=== PATIENT | male | born 1950 | race Caucasian/White ===

== ENCOUNTER 2018-09-12 16:58 | Emergency (ER) | payer OTHER ==
[2018-09-12 18:14] LABS: Urine Glucose NEGATIVE (NEG)
[2018-09-12 18:15] LABS: Urine Blood NEGATIVE (NEG); Urine Protein NEGATIVE (NEG)
[2018-09-12 18:39] LABS: Urine Bacteria <20 /HPF (NONE SEEN); Urine RBC NONE SEEN /HPF (NONE SEEN)
[2018-09-12 18:40] LABS: Urine Culture Reflex Order NOT NEEDED; Urine Mucus 1+ /HPF (NONE SEEN)
[2018-09-12] MEDS ORDERED: ONDANSETRON 4 MG/2 ML VIAL ONE (19:01)
[2018-09-12] MEDS ORDERED: MORPHINE 4 MG/ML SYR ONE (19:01)
[2018-09-12] MEDS ORDERED: NA CHLORIDE 0.9% 1,000 ML ONE (19:02)
[2018-09-12 19:12] LABS: Albumin 4.1 g/dL (3.4-5.0); Bilirubin Direct 0.2 mg/dL (0-0.2); Bilirubin Total 0.8 mg/dL (0.2-1.0); Potassium 3.8 mmol/L (3.5-5.1); Protein, Total 7.5 g/dL (6.4-8.2)
[2018-09-12 19:15] LABS: Absolute Lymphocytes (CBC) 0.7 K/uL (0.7-4.9); Absolute Neutrophil 11.6 K/uL (1.8-8.0); Basophils % 0.3 % (0-1.3); Eosinophils % 0.3 % (0-4.4); Hematocrit 53.4 % (39.6-49.0); Lymphocytes % 5.2 % (15.3-44.8); MPV 9.4 fL (7.6-11.3); Monocytes % 7.3 % (3.3-12.3); RBC Red Blood Cell Count 6.23 M/uL (4.33-5.43)
--- NOTE | 2018-09-12 19:38 | RAD REPORT ---
EXAM DESCRIPTION: CT - Abdomen Pelvis W Contrast - 09/12/2018 7:24 pm CLINICAL HISTORY: Abdominal pain COMPARISON: none. TECHNIQUE: Computed axial tomography of the abdomen pelvis was obtained. 100 cc Isovue-300 was admin istered intravenously. Oral contrast was not requested which limits evaluation of bowel. All CT scans are performed using dose optimization technique as appropriate and may include automated exposure control or mA/KV adjustment according to patient size. FINDINGS: The liver, spleen, pancreas, and adrenals appear unremarkable. Tiny nonobstructing bilateral renal calculi are present There is no evidence of diverticulitis. The appendix is normal. The gallbladder is mildly distended. At least 2 stones are present. Gallbladder wall does not appear thickened Spondylosis results in spinal stenosis. The prostate gland is mildly enlarged. Right inguinal hernia contains fat IMPRESSION: Cholelithiasis with gallbladder distention.
[2018-09-12 19:46] LABS: Blood Morphology Comment NOT SEEN (NOT SEEN); Platelet Estimate ADEQ; Platelets, Giant NOTED; Urine White Blood Cell Casts OK
[2018-09-12] MEDS ORDERED: KETOROLAC 30 MG/ML INJ ONE (20:59)
--- NOTE | 2018-09-12 23:28 | ER ---
Nurse's Notes [facility] Name: Ruby Sanchez Age: 68 yrs Sex: Male : 1950 Arrival Date: 09/12/2018 Time: 17:02 Bed 15 Private MD: Diagnosis: Cholelithiasis Presentation: 09/12 17:09 Presenting complaint: Patient states: i am having extreme abdominal pain started about tw2 noon, same time yesterday, i took some charcoal pills it went away then it came back, N, denies vomiting and diarrhea. Transition of care: patient was not received from another setting of care. Onset of symptoms was September 12, 2018. Risk Assessment: Do you want to hurt yourself or someone else? Patient reports no desire to harm self or others. Initial Sepsis Screen: Does the patient meet any 2 criteria? No. Patient's initial sepsis screen is negative. Does the patient have a suspected source of infection? No. Patient's initial sepsis screen is negative. Care prior to arrival: None. 17:09 Method Of Arrival: Ambulatory tw2 17:09 Acuity: ADRIAN 3 tw2 Triage Assessment: 17:12 General: Appears uncomfortable, Behavior is calm, cooperative, appropriate for age. tw2 Pain: Complains of pain in abdomen. GI: Abdomen is round. Historical: - Allergies: 17:12 No Known Allergies; tw2 - Home Meds: 17:12 Metoprolol Tartrate Oral [Active]; Benicar oral oral [Active]; Wellbutrin Oral [Active];tw2 - PMHx: 17:12 Hypertension; tw2 - Immunization history:: Adult Immunizations. - Social history:: Smoking status: Patient/guardian denies using tobacco. - Ebola Screening: : Patient denies travel to an Ebola-affected area in the 21 days before illness onset. Screenin:15 Abuse screen: Denies threats or abuse. Nutritional screening: No deficits noted. rb1 Tuberculosis screening: No symptoms or risk factors identified. Fall Risk None identified. Assessment: 17:15 General: Appears uncomfortable, Behavior is calm, cooperative, Denies fever. Pain: rb1 Complains of pain in abdomen Pain currently is 8 out of 10 on a pain scale. Quality of pain is described as sharp, Pain began 1 day ago. Is intermittent. Neuro: Level of Consciousness is awake, alert, obeys commands, Oriented to person, place, time, situation. Cardiovascular: Capillary refill < 3 seconds is brisk in bilateral fingers. Respiratory: Airway is patent Respiratory effort is even, unlabored, Respiratory pattern is regular, symmetrical. GI: Bowel sounds present X 4 quads. Abd is soft X 4 quads Reports nausea. : No signs and/or symptoms were reported regarding the genitourinary system. Derm: Skin is pink, warm \T\ dry. 18:15 Reassessment: Patient appears in no apparent distress at this time. No changes from rb1 previously documented assessment. Pt. is pacing around the room. Friend at bedside. 19:05 General: Appears in no apparent distress. uncomfortable, Behavior is calm, cooperative, rr5 appropriate for age. Pain: Complains of pain in right upper quadrant and left upper quadrant Pain does not radiate. Pain currently is 4 out of 10 on a pain scale. Quality of pain is described as sharp, Pain began 1 day ago. Is intermittent. 19:05 Neuro: Level of Consciousness is awake, alert, obeys commands, Oriented to person, rr5 place, time, situation. Cardiovascular: Capillary refill < 3 seconds Patient's skin is warm and dry. Respiratory: Airway is patent Respiratory effort is even, unlabored, Respiratory pattern is regular, symmetrical. GI: Abdomen is round. : No signs and/or symptoms were reported regarding the genitourinary system. EENT: No signs and/or symptoms were reported regarding the EENT system. Derm: Skin temperature is warm. Musculoskeletal: Capillary refill < 3 seconds, Range of motion: intact in all extremities. 20:05 Reassessment: Patient appears in no apparent distress at this time. Patient is alert, rr5 oriented x 3, equal unlabored respirations, skin warm/dry/pink. reassess by ED provider with order made and carried out. Patient states feeling better. Patient states symptoms have improved. 20:50 Reassessment: Patient appears in no apparent distress at this time. abdominal pain rr5 recur. Ed provider with order made and carried out. pain score of 7/10, facial grimace noted. 21:30 Reassessment: Patient appears in no apparent distress at this time. Patient is alert, rr5 oriented x 3, equal unlabored respirations, skin warm/dry/pink. Patient states symptoms have improved. 22:27 Reassessment: Patient appears in no apparent distress at this time. Patient is alert, rr5 oriented x 3, equal unlabored respirations, skin warm/dry/pink. Patient states feeling better. Patient states symptoms have improved. 23:24 Reassessment: Patient appears in no apparent distress at this time. Patient is alert, rr5 oriented x 3, equal unlabored respirations, skin warm/dry/pink. pain totally 0 now as verbalized by the patient. Patient denies pain at this time. Patient states feeling better. Patient states symptoms have improved. 23:45 Reassessment: Patient appears in no apparent distress at this time. Patient is alert, rr5 oriented x 3, equal unlabored respirations, skin warm/dry/pink. discharge instruction given and explained without complaints made. Patient denies pain at this time. Patient states feeling better. Patient states symptoms have improved. Vital Signs: 17:12 BP 161 / 68; Pulse 64; Resp 18; Temp 98.3(O); Pulse Ox 99% on R/A; Weight 113.4 kg (R); tw2 Height 5 ft. 7 in. (170.18 cm); Pain 8/10; 19:05 BP 169 / 70; Pulse 65; Resp 17; Temp 98.4(O); Pulse Ox 99% ; Pain 4/10; rr5 20:00 BP 171 / 76; Pulse 66; Resp 19; Pulse Ox 98% ; rr5 21:00 BP 175 / 82; Pulse 82; Resp 20; Pulse Ox 97% ; rr5 21:48 BP 156 / 77; Pulse 89; Resp 18; Pulse Ox 95% on R/A; mt 22:27 BP 126 / 69; Pulse 87; Resp 18; Pulse Ox 96% ; rr5 23:25 BP 139 / 58; Pulse 75; Resp 16; Pulse Ox 99% ; rr5 17:12 Body Mass Index 39.16 (113.40 kg, 170.18 cm) tw2 ED Course: 17:02 Patient arrived in ED. as 17:10 Triage completed. tw2 17:10 Arm band placed on. tw2 17:15 Mauricio Rios NP is PHCP. pm1 17:15 Dale Chand MD is Attending Physician. pm1 17:15 Patient has correct armband on for positive identification. Bed in low position. Call rb1 light in reach. Side rails up X 1. Pulse ox on. NIBP on. Warm blanket given. 17:32 Radiology exam delayed due to lab results not completed at this time. (BUN/Creatinine). vm2 17:59 Radiology exam delayed due to lab results not completed at this time. (BUN/Creatinine). nj 18:16 Vesta Corrigan, RN is Primary Nurse. rb1 18:32 Radiology exam delayed due to lab results not completed at this time. (BUN/Creatinine). vm2 18:35 Missed attempt(s): 22 gauge in left antecubital area. rb1 18:46 Radiology exam delayed due to lab results not completed at this time. (BUN/Creatinine). 2 19:00 Report given to ALVINA Manjarrez. rb1 19:02 Radiology exam delayed due to lab results not completed at this time. (BUN/Creatinine). 2 19:06 Missed attempt(s): 20 gauge in right forearm. antecubital area. 5 19:07 Urine collected: clean catch specimen, clear. 5 19:08 Basic Metabolic Panel Sent. 5 19:08 CBC with Diff Sent. 5 19:08 Creatinine for Radiology Sent. 5 19:08 Hepatic Function Sent. 5 19:08 Lipase Sent. 5 19:[address] via wheelchair. 2 19:23 CT completed. Patient tolerated procedure well. Patient moved back from CT. nj 19:24 CT Abd/Pelvis - W/Contrast: IV contrast only In Process Unspecified. EDMS 20:50 IV discontinued, intact, bleeding controlled, No redness/swelling at site. Pressure rr5 dressing applied, infiltrated. 21:04 US Abdomen Limited In Process Unspecified. EDMS 23:45 No provider procedures requiring assistance completed. rr5 Administered Medications: 18:55 Drug: NS 0.9% 1000 ml Route: IV; Rate: 1000 ml; Site: right antecubital; rb1 20:50 Follow up: Response: No adverse reaction; IV Status: Order to discontinue infusion; IV rr5 Intake: 500ml 18:55 Drug: morphine 4 mg Route: IVP; Site: right antecubital; rb1 20:16 Follow up: Response: No adverse reaction rr5 18:55 Drug: Zofran 4 mg Route: IVP; Site: right antecubital; rb1 20:16 Follow up: Response: No adverse reaction rr5 20:55 CANCELLED (Other Intervention Used): TORadol 15 mg IVP once rr5 20:55 Drug: TORadol 30 mg Route: IM; Site: left gluteus; rr5 23:40 Follow up: Response: No adverse reaction rr5 Intake: 20:50 IV: 500ml; Total: 500ml. rr5 Outcome: 23:27 Discharge ordered by MD. pm1 23:45 Discharged to home ambulatory. rr5 23:45 Condition: stable 23:45 Discharge instructions given to patient, Instructed on discharge instructions, follow up and referral plans. medication usage, Demonstrated understanding of instructions, follow-up care, medications, Prescriptions given X 3. 23:46 Patient left the ED. rr5 Signatures: Dispatcher [employer] Kely Alan Rebecca, RN RN rb1 Mauricio Rios NP CHEMICAL EQUIPMENT CONTROLLER pm1 Halima Bryson RN RN tw2 Codey Og Maria Vickie Jeffery [facility] Claire Salas mt, Raymond, RN RN rr5
--- NOTE | 2018-09-12 23:28 | EDPHYS ---
Physician Documentation [facility] Name: Ruby Sanchez Age: 68 yrs Sex: Male : 1950 Arrival Date: 09/12/2018 Time: 17:02 Bed 15 Private MD: ED Physician Dale Chand HPI: 09/12 19:12 This 68 yrs old Male presents to ER via Ambulatory with complaints of pm1 Abdominal Pain. 19:12 The patient presents with abdominal pain that is diffuse. Onset: The symptoms/episode pm1 began/occurred last night. The symptoms do not radiate. Associated signs and symptoms: Pertinent positives: nausea, Low back pain, Pertinent negatives: chest pain, diarrhea, dysuria, fever, shortness of breath, vomiting. The symptoms are described as sharp. Modifying factors: The symptoms are alleviated by OTC medication, charcoal helped last night. Standing makes it better. the symptoms are aggravated by Lying down and sitting down make it worse. Severity of pain: in the emergency department the pain is actually worse. The patient has not experienced similar symptoms in the past. The patient has not recently seen a physician. Historical: - Allergies: 17:12 No Known Allergies; tw2 - Home Meds: 17:12 Metoprolol Tartrate Oral [Active]; Benicar oral oral [Active]; Wellbutrin Oral [Active];tw2 - PMHx: 17:12 Hypertension; tw2 - Immunization history:: Adult Immunizations. - Social history:: Smoking status: Patient/guardian denies using tobacco. - Ebola Screening: : Patient denies travel to an Ebola-affected area in the 21 days before illness onset. ROS: 19:12 Constitutional: Negative for fever, chills, and weight loss, Eyes: Negative for injury, pm1 pain, redness, and discharge, ENT: Negative for injury, pain, and discharge, Neck: Negative for injury, pain, and swelling, Cardiovascular: Negative for chest pain, palpitations, and edema, Respiratory: Negative for shortness of breath, cough, wheezing, and pleuritic chest pain. 19:12 Back: Negative for injury and pain, : Negative for injury, bleeding, discharge, and swelling, MS/Extremity: Negative for injury and deformity, Skin: Negative for injury, rash, and discoloration, Neuro: Negative for headache, weakness, numbness, tingling, and seizure. 19:12 Abdomen/GI: Positive for abdominal pain, nausea, Negative for vomiting, diarrhea, constipation. Exam: 19:12 Constitutional: This is a well developed, well nourished patient who is awake, alert, pm1 and in no acute distress. Head/Face: Normocephalic, atraumatic. Eyes: Pupils equal round and reactive to light, extra-ocular motions intact. Lids and lashes normal. Conjunctiva and sclera are non-icteric and not injected. Cornea within normal limits. Periorbital areas with no swelling, redness, or edema. ENT: Nares patent. No nasal discharge, no septal abnormalities noted. Tympanic membranes are normal and external auditory canals are clear. Oropharynx with no redness, swelling, or masses, exudates, or evidence of obstruction, uvula midline. Mucous membranes moist. Neck: Trachea midline, no thyromegaly or masses palpated, and no cervical lymphadenopathy. Supple, full range of motion without nuchal rigidity, or vertebral point tenderness. No Meningismus. Chest/axilla: Normal chest wall appearance and motion. Nontender with no deformity. No lesions are appreciated. Cardiovascular: Regular rate and rhythm with a normal S1 and S2. No gallops, murmurs, or rubs. Normal PMI, no JVD. No pulse deficits. Respiratory: Lungs have equal breath sounds bilaterally, clear to auscultation and percussion. No rales, rhonchi or wheezes noted. No increased work of breathing, no retractions or nasal flaring. 19:12 Back: No spinal tenderness. No costovertebral tenderness. Full range of motion. Skin: Warm, dry with normal turgor. Normal color with no rashes, no lesions, and no evidence of cellulitis. MS/ Extremity: Pulses equal, no cyanosis. Neurovascular intact. Full, normal range of motion. 19:12 Abdomen/GI: Inspection: obese Bowel sounds: normal, Palpation: soft, mild abdominal tenderness, in the left upper quadrant, mass, is not appreciated, rebound tenderness, is not appreciated. 19:12 Neuro: Orientation: is normal, Motor: is normal, moves all fours, Sensation: is normal, no obvious gross deficits. Vital Signs: 17:12 BP 161 / 68; Pulse 64; Resp 18; Temp 98.3(O); Pulse Ox 99% on R/A; Weight 113.4 kg (R); tw2 Height 5 ft. 7 in. (170.18 cm); Pain 8/10; 19:05 BP 169 / 70; Pulse 65; Resp 17; Temp 98.4(O); Pulse Ox 99% ; Pain 4/10; rr5 20:00 BP 171 / 76; Pulse 66; Resp 19; Pulse Ox 98% ; rr5 21:00 BP 175 / 82; Pulse 82; Resp 20; Pulse Ox 97% ; rr5 21:48 BP 156 / 77; Pulse 89; Resp 18; Pulse Ox 95% on R/A; mt 22:27 BP 126 / 69; Pulse 87; Resp 18; Pulse Ox 96% ; rr5 23:25 BP 139 / 58; Pulse 75; Resp 16; Pulse Ox 99% ; rr5 17:12 Body Mass Index 39.16 (113.40 kg, 170.18 cm) tw2 MDM: 17:15 Patient medically screened. pm1 19:16 Data reviewed: vital signs. Data interpreted: Pulse oximetry: on room air is 99 %. pm1 Interpretation: normal. 23:26 Counseling: I had a detailed discussion with the patient and/or guardian regarding: the pm1 historical points, exam findings, and any diagnostic results supporting the discharge/admit diagnosis, lab results, radiology results, the need for outpatient follow up, for definitive care, a general surgeon, to return to the emergency department if symptoms worsen or persist or if there are any questions or concerns that arise at home. 09/12 17:22 Order name: Basic Metabolic Panel; Complete Time: 19:16 pm09/12 17:22 Order name: CBC with Diff; Complete Time: 19:47 pm09/12 17:22 Order name: Creatinine for Radiology; Complete Time: 19:12 pm1 09/12 17:22 Order name: Hepatic Function; Complete Time: 19:16 pm1 09/12 17:22 Order name: Lipase; Complete Time: 19:16 pm1 09/12 17:22 Order name: Urine Microscopic Only; Complete Time: 18:45 pm1 09/12 17:22 Order name: CT Abd/Pelvis - W/Contrast: IV contrast only; Complete Time: 19:46 pm1 09/12 18:10 Order name: Urine Dipstick--Ancillary (enter results); Complete Time: 18:20 em1 09/12 19:22 Order name: CBC Smear Scan; Complete Time: 19:47 EDMS 09/12 20:09 Order name: US Abdomen Limited; Complete Time: 15:10 pm1 09/12 17:22 Order name: IV Saline Lock; Complete Time: 18:45 pm1 09/12 17:22 Order name: Labs collected and sent; Complete Time: 18:45 pm1 09/12 17:22 Order name: Urine Dipstick-Ancillary (obtain specimen); Complete Time: 18:07 pm1 Administered Medications: 18:55 Drug: NS 0.9% 1000 ml Route: IV; Rate: 1000 ml; Site: right antecubital; rb1 20:50 Follow up: Response: No adverse reaction; IV Status: Order to discontinue infusion; IV rr5 Intake: 500ml 18:55 Drug: morphine 4 mg Route: IVP; Site: right antecubital; rb1 20:16 Follow up: Response: No adverse reaction rr5 18:55 Drug: Zofran 4 mg Route: IVP; Site: right antecubital; rb1 20:16 Follow up: Response: No adverse reaction rr5 20:55 CANCELLED (Other Intervention Used): TORadol 15 mg IVP once rr5 20:55 Drug: TORadol 30 mg Route: IM; Site: left gluteus; rr5 23:40 Follow up: Response: No adverse reaction rr5 Disposition: 09/13 06:53 Co-signature as Attending Physician, Dale Chand MD I agree with the assessment and kdr plan of care. Disposition: 09/12/18 23:27 Discharged to Home. Impression: Cholelithiasis. - Condition is Stable. - Discharge Instructions: Cholelithiasis. - Prescriptions for Bentyl 20 mg Oral Tablet - take 1 tablet by ORAL route every 6 hours As needed; 20 tablet. Tylenol- Codeine #3 300-30 mg Oral Tablet - take 2 tablets by ORAL route every 6 hours As needed; 20 tablet. Zofran 4 mg Oral Tablet - take 1 tablet by ORAL route every 12 hours As needed; 20 tablet. - Medication Reconciliation Form, Thank You Letter, Antibiotic Education, Prescription Opioid Use form. - Follow up: Emergency Department; When: As needed; Reason: Worsening of condition. Follow up: Private Physician; When: 2 - 3 days; Reason: Recheck today's complaints, Continuance of care, Re-evaluation by your physician. - Problem is new. - Symptoms have improved. Signatures: Dispatcher [employer] EDMS Dale Chand MD MD [facility] Vesta Corrigan, RN RN rb1 Mauricio Rios NP PERIODICALS CLERK pm1 Halima Bryson RN RN tw2 Loki Herring RN RN rr5 Corrections: (The following items were deleted from the chart) 09/12 20:55 20:47 TORadol 15 mg IVP once ordered. pm1 rr5 23:46 23:27 09/12/2018 23:27 Discharged to Home. Impression: Cholelithiasis. Condition is rr5 Stable. Forms are Medication Reconciliation Form, Thank You Letter, Antibiotic Education, Prescription Opioid Use. Follow up: Emergency Department; When: As needed; Reason: Worsening of condition. Follow up: Private Physician; When: 2 - 3 days; Reason: Recheck today's complaints, Continuance of care, Re-evaluation by your physician. Problem is new. Symptoms have improved. pm1
--- NOTE | 2018-09-13 09:40 | RAD REPORT ---
EXAM DESCRIPTION: US - Abdomen Exam Limited - 09/12/2018 9:05 pm CLINICAL HISTORY: Abdominal pain COMPARISON: CT study September 12 FINDINGS: Two large abutting gallstones are identified. No sludge is seen. There is no wall thickeni ng or pericholecystic fluid. No common duct stone or biliary tree dilatation identified. IMPRESSION: Two large mobile gallstones. No other acute gallbladder or biliary tree finding.
== END 2018-09-12 23:46 | disposition home or self-care (01) ==
LOC: ER 16:58
DX: K80.20 Calculus of gallbladder without cholecystitis without obstruction (principal); I10 Essential (primary) hypertension
CPT/HCPCS: 36415; 74177; 76705; 80048; 80076; 81003; 81015; 83690; 85025; 96361; 96372; 96374; 96375; 99284; J2405; J7030; Q9967